=== PATIENT | female | born 1985 | race African-American/Black ===

== ENCOUNTER 2019-04-13 17:00 | Inpatient (IN) | payer MEDICARE, MEDICAID ==
[~2019-04-13] VITALS: Ht 177.8 cm; Wt 152.0 kg
[2019-04-13] MEDS ORDERED: MORPHINE SULFATE 4 MG/ML CPJ (NOT FOR IM USE) IV STA (18:46)
[2019-04-13] MEDS ORDERED: ONDANSETRON HCL 4MG/2ML INJ IV STA (18:46)
[2019-04-13] MEDS ORDERED: SODIUM CHLORIDE 0.9% 1,000 ML IV ONE (18:46)
[2019-04-13] MEDS ORDERED: DIPHENHYDRAMINE 50MG/ML VIAL IV ONE ×2 (19:00→23:15)
[2019-04-13 19:13] LABS: CLARITY URINE CLOUDY (CLEAR); COLOR URINE YELLOW (YELLOW); KETONES URINE NEGATIVE (NEGATIVE); LEUKOCYTE ESTERASE URINE 3+ (NEGATIVE); NITRITE URINE NEGATIVE (NEGATIVE); OCCULT BLOOD URINE 1+ (NEGATIVE); PH URINE >=9.0 (4.5-8.0); PROTEIN URINE NEGATIVE (NEGATIVE); SPECIFIC GRAVITY URINE 1.008 (1.005-1.030); UROBILINOGEN URINE 0.2 E.U./dL (0.2-1.0)
[2019-04-13] MEDS ORDERED: METRONIDAZOLE 500 MG PREMIX 100 ML IV ONE (19:30)
[2019-04-13] MEDS ORDERED: PIPERACILLIN/TAZ 3.375G PREMIX 50 ML IV ONE (19:30)
[2019-04-13 20:20] LABS: *AMPHETAMINES SCREEN URINE NEGATIVE (NEGATIVE); *BARBITURATES SCREEN URINE NEGATIVE (NEGATIVE); *BENZODIAZEPINES SCREEN URINE NEGATIVE (NEGATIVE); *COCAINE SCREEN URINE NEGATIVE (NEGATIVE)
[2019-04-13 20:21] LABS: METHADONE URINE SCREEN NEGATIVE (NEGATIVE); OPIATES URINE SCREEN NEGATIVE (NEGATIVE); PHENCYCLIDINE URINE SCREEN NEGATIVE (NEGATIVE)
[2019-04-13 20:32] LABS: CANNABINOID URINE SCREEN PRESUMTIVE POSITIVE (NEGATIVE)
[2019-04-13 22:11] LABS: BASOPHILS % 0.8 % (0.0-2.0); EOSINOPHILS % 1.4 % (0.0-5.0); HEMATOCRIT. 32.3 % (36.0-48.0); HEMOGLOBIN. 10.3 g/dL (12.0-16.0); LYMPHOCYTES % 16.6 % (20.0-50.0); MEAN CORPUSCULAR HEMOGLOBIN 23.5 pg (28.0-32.0); MEAN CORPUSCULAR VOLUME 73.7 fL (81.0-99.0); MONOCYTES % 7.7 % (2.0-8.0); NEUTROPHILS % 73.5 % (40.0-76.0); PLATELET 436 x1000/uL (130-400); RED BLOOD CELL COUNT 4.38 mill/uL (4.2-5.4)
[2019-04-13 22:18] LABS: CHLORIDE 102 mEq/L (98-107); HCG SCREEN NEGATIVE
[2019-04-13 22:21] LABS: ETHANOL BLOOD < 10 mg/dL
[2019-04-13] MEDS ORDERED: MORPHINE SULFATE 10 MG/ML CPJ IV ONE (23:15)
[2019-04-13] MEDS ORDERED: ONDANSETRON HCL 4MG/2ML INJ IV ONE (23:15)
[2019-04-14] MEDS ORDERED: VANCOMYCIN 1 G PREMIX 200 ML IV SCH (01:15)
[2019-04-14] MEDS ORDERED: DIPHENHYDRAMINE 50MG/ML VIAL IV ONE (04:00)
[2019-04-14] MEDS ORDERED: MORPHINE SULFATE 4 MG/ML CPJ (NOT FOR IM USE) IV ONE (04:00)
[2019-04-14 05:35] VITALS: BP 132/67
[2019-04-14 08:00] VITALS: BP 146/87
[2019-04-14] MEDS: HYDROMORPHONE HCL/PF 2MG/ML CPJ IV PRN ×4 (09:16→23:03)
[2019-04-14 09:30] VITALS: BP 146/87
[2019-04-14] MEDS ORDERED: PIPERACILLIN/TAZ 3.375G PREMIX 50 ML IV SCH (09:30)
[2019-04-14] MEDS ORDERED: ONDANSETRON HCL 4MG/2ML INJ IV PRN (09:30)
[2019-04-14] MEDS ORDERED: CLONIDINE 0.1MG TABLET PO PRN (09:30)
[2019-04-14] MEDS ORDERED: ACETAMINOPHEN 325MG TABLET PO PRN (09:30)
[2019-04-14] MEDS: DIPHENHYDRAMINE 50MG/ML VIAL IV PRN ×3 (10:35→23:36)
[2019-04-14] MEDS: ENOXAPARIN 40MG/0.4ML SYR SUBCUT SCH ×2 (10:44→20:29)
[2019-04-14] MEDS ORDERED: PIPERACILLIN/TAZOBACTAM 3.375 G in DEXT 5% WATER 100 ML IV SCH (11:30)
[2019-04-14 12:00] VITALS: BP 101/56
[2019-04-14] MEDS ORDERED: VANCOMYCIN 1250MG in DEXTROSE 5% WATER 250ML IV SCH (12:00)
[2019-04-14] MEDS: SODIUM CHLORIDE 0.9% 1,000 ML IV SCH (15:35)
[2019-04-14 16:00] VITALS: BP 132/73
[2019-04-14] MEDS: PIPERACILLIN/TAZOBACTAM 3.375 G in DEXT 5% WATER 100 ML IV SCH (16:05)
[2019-04-14] MEDS: VANCOMYCIN 1,250 MG in DEXT 5% WATER 250 ML IV SCH (17:27)
[2019-04-14 20:00] VITALS: BP 151/64
[2019-04-15] VITALS: BP 135/55
[2019-04-15] MEDS: PIPERACILLIN/TAZOBACTAM 3.375 G in DEXT 5% WATER 100 ML IV SCH ×4 (01:12→23:28)
[2019-04-15] MEDS: VANCOMYCIN 1,250 MG in DEXT 5% WATER 250 ML IV SCH ×3 (02:19→17:04)
[2019-04-15] MEDS: HYDROMORPHONE HCL/PF 2MG/ML CPJ IV PRN ×5 (03:24→20:54)
[2019-04-15 04:00] VITALS: BP 116/63
[2019-04-15] MEDS: DIPHENHYDRAMINE 50MG/ML VIAL IV PRN ×4 (05:34→23:28)
[2019-04-15] MEDS: ENOXAPARIN 40MG/0.4ML SYR SUBCUT SCH ×2 (09:00→20:53)
[2019-04-15] MEDS: SODIUM CHLORIDE 0.9% 1,000 ML IV SCH (09:09)
[2019-04-15 14:20] LABS: BASOPHILS % 1.1 % (0.0-2.0); EOSINOPHILS % 5.8 % (0.0-5.0); HEMATOCRIT. 30.8 % (36.0-48.0); HEMOGLOBIN. 9.6 g/dL (12.0-16.0); LYMPHOCYTES % 18.1 % (20.0-50.0); MEAN CORPUSCULAR HEMOGLOBIN 22.8 pg (28.0-32.0); MEAN CORPUSCULAR VOLUME 73.3 fL (81.0-99.0); MEAN PLATELET VOLUME 7.2 fl (7.4-10.4); MONOCYTES % 9.6 % (2.0-8.0); NEUTROPHILS % 65.4 % (40.0-76.0); PLATELET 384 x1000/uL (130-400); RED BLOOD CELL COUNT 4.19 mill/uL (4.2-5.4); RED CELL DISTRIBUTION WIDTH 19.7 % (11.6-14.6)
[2019-04-15 14:37] LABS: CHLORIDE 102 mEq/L (98-107)
[2019-04-15 20:00] VITALS: BP 130/55
[2019-04-16] VITALS (7 sets, daily range): BP systolic 100–132; BP diastolic 63–84
[2019-04-16] MEDS: HYDROMORPHONE HCL/PF 2MG/ML CPJ IV PRN ×6 (01:02→21:47)
[2019-04-16] MEDS: VANCOMYCIN 1,250 MG in DEXT 5% WATER 250 ML IV SCH ×3 (01:02→17:18)
[2019-04-16] MEDS: DIPHENHYDRAMINE 50MG/ML VIAL IV PRN ×4 (05:15→23:17)
[2019-04-16] MEDS: ENOXAPARIN 40MG/0.4ML SYR SUBCUT SCH ×2 (09:00→21:00)
[2019-04-16] MEDS: PIPERACILLIN/TAZOBACTAM 3.375 G in DEXT 5% WATER 100 ML IV SCH ×3 (09:17→23:17)
[2019-04-16 15:49] LABS: HEMATOCRIT 29.9 % (36.0-48.0); HEMOGLOBIN 9.2 g/dL (12.0-16.0)
[2019-04-17] VITALS: BP 134/80
[2019-04-17] MEDS: VANCOMYCIN 1,250 MG in DEXT 5% WATER 250 ML IV SCH ×3 (01:44→17:22)
[2019-04-17] MEDS: HYDROMORPHONE HCL/PF 2MG/ML CPJ IV PRN ×4 (01:51→20:19)
[2019-04-17 04:00] VITALS: BP 136/72
[2019-04-17] MEDS: DIPHENHYDRAMINE 50MG/ML VIAL IV PRN ×4 (05:25→23:18)
[2019-04-17 08:00] VITALS: BP 130/77
[2019-04-17] MEDS: ENOXAPARIN 40MG/0.4ML SYR SUBCUT SCH ×2 (09:00→20:26)
[2019-04-17] MEDS: PIPERACILLIN/TAZOBACTAM 3.375 G in DEXT 5% WATER 100 ML IV SCH ×3 (09:12→23:19)
[2019-04-17] MEDS: SODIUM CHLORIDE 0.9% 1,000 ML IV SCH (09:12)
[2019-04-17] MEDS ORDERED: HYDROCODONE/ACETAMINOPHEN 5/325MG TABLET PO PRN ×2 (10:30)
[2019-04-17 12:00] VITALS: BP 128/75
[2019-04-17] MEDS ORDERED: HYDROMORPHONE HCL/PF 2MG/ML CPJ IV PRN (15:40)
[2019-04-17 16:00] VITALS: BP 132/78
[2019-04-17 20:00] VITALS: BP 118/69
[2019-04-18] VITALS: BP 110/71
[2019-04-18] MEDS: HYDROMORPHONE HCL/PF 2MG/ML CPJ IV PRN ×6 (00:39→20:40)
[2019-04-18] MEDS: VANCOMYCIN 1,250 MG in DEXT 5% WATER 250 ML IV SCH ×3 (00:39→16:25)
[2019-04-18 04:00] VITALS: BP 133/68
[2019-04-18] MEDS: DIPHENHYDRAMINE 50MG/ML VIAL IV PRN ×4 (05:01→22:43)
[2019-04-18 08:00] VITALS: BP 110/67
[2019-04-18] MEDS: ENOXAPARIN 40MG/0.4ML SYR SUBCUT SCH ×2 (08:53→20:53)
[2019-04-18] MEDS: PIPERACILLIN/TAZOBACTAM 3.375 G in DEXT 5% WATER 100 ML IV SCH ×3 (08:54→22:43)
[2019-04-18 20:00] VITALS: BP 121/74
[2019-04-19] VITALS (9 sets, daily range): BP systolic 19–141; BP diastolic 52–124
[2019-04-19] MEDS: VANCOMYCIN 1,250 MG in DEXT 5% WATER 250 ML IV SCH ×3 (00:38→18:08)
[2019-04-19] MEDS: HYDROMORPHONE HCL/PF 2MG/ML CPJ IV PRN ×6 (00:41→21:05)
[2019-04-19] MEDS: DIPHENHYDRAMINE 50MG/ML VIAL IV PRN ×3 (04:55→16:53)
[2019-04-19 07:08] LABS: CHLORIDE 105 mEq/L (98-107)
[2019-04-19] MEDS: PIPERACILLIN/TAZOBACTAM 3.375 G in DEXT 5% WATER 100 ML IV SCH ×2 (07:54→16:53)
[2019-04-19] MEDS: ENOXAPARIN 40MG/0.4ML SYR SUBCUT SCH ×2 (09:00→21:00)
[2019-04-19] MEDS: SODIUM CHLORIDE 0.9% 1,000 ML IV SCH ×2 (10:20→11:00)
[2019-04-19] MEDS ORDERED: HYDROMORPHONE HCL/PF 2MG/ML CPJ IV NR (17:42)
== END 2019-04-19 22:18 | disposition short-term general hospital (02) | DRG 603 ==
LOC: ER 17:00 → 6EST 04-14 01:05 → EDBEDREQSVC 04-14 01:10 → EDBEDREQ 04-14 01:10 → EDBEDREQTM 04-14 01:10 → EDBEDREQDT 04-14 01:10 → ENRESERV 04-14 04:12 → 6EST 04-14 06:28
PROVIDERS: ADMIT Internal Medicine; ATTEND Internal Medicine
PROC: 02HV33Z Insertion of Infusion Device into Superior Vena Cava, Percutaneous Approach (ICD-10-PCS; principal; 2019-04-14)
PROC: B548ZZA Ultrasonography of Superior Vena Cava, Guidance (ICD-10-PCS; 2019-04-14)
DX: L03.311 Cellulitis of abdominal wall (principal); K50.911 Crohn's disease, unspecified, with rectal bleeding; N39.0 Urinary tract infection, site not specified; N82.3 Fistula of vagina to large intestine; Z68.42 Body mass index [BMI] 45.0-49.9, adult; D64.9 Anemia, unspecified; E66.01 Morbid (severe) obesity due to excess calories; Z88.8 Allergy status to other drugs, medicaments and biological substances; Z93.6 Other artificial openings of urinary tract status
CPT/HCPCS: 36415; 71045; 74176; 76937; 80048; 80202; 80305; 80320; 81003; 83605; 84145; 84484; 84703; 85014; 85018; 86850; 86900; 93970; 96365; 96366; 96367; 96368; 96375; 96376; 99285; C1725; C1893; J1170; J1200; J1650; J2270; J2405; J2543; J3370; J3490; J7030; J7060; G0480

== ENCOUNTER 2020-01-16 13:50 | Inpatient (IN) | payer MEDICARE, MEDICAID ==
[~2020-01-16] VITALS: Ht 167.6 cm; Wt 184.2 kg
[2020-01-16] MEDS ORDERED: ONDANSETRON HCL 4MG/2ML INJ IV ONE (14:45)
[2020-01-16] MEDS ORDERED: MORPHINE SULFATE 4 MG/ML CPJ (NOT FOR IM USE) IV ONE ×4 (14:45→18:45)
[2020-01-16] MEDS: VANCOMYCIN 1 G PREMIX 200 ML IV ONE (14:45)
[2020-01-16] MEDS ORDERED: SODIUM CHLORIDE 0.9% 1,000 ML IV ONE (14:45)
[2020-01-16] MEDS ORDERED: PIPERACILLIN/TAZ 3.375G PREMIX 50 ML IV ONE (14:45)
[2020-01-16 16:08] LABS: BASOPHILS % 0.3 % (0.0-2.0); EOSINOPHILS % 2.6 % (0.0-5.0); HEMATOCRIT. 37.8 % (36.0-48.0); HEMOGLOBIN. 12.1 g/dL (12.0-16.0); LYMPHOCYTES % 34.6 % (20.0-50.0); MEAN CORPUSCULAR HEMOGLOBIN 27.9 pg (28.0-32.0); MEAN CORPUSCULAR VOLUME 86.8 fL (81.0-99.0); MEAN PLATELET VOLUME 7.9 fl (7.4-10.4); MONOCYTES % 10.7 % (2.0-8.0); NEUTROPHILS % 51.8 % (40.0-76.0); PLATELET 290 x1000/uL (130-400); RED BLOOD CELL COUNT 4.35 mill/uL (4.2-5.4); RED CELL DISTRIBUTION WIDTH 20.2 % (11.6-14.6)
[2020-01-16 16:13] LABS: CHLORIDE 109 mEq/L (98-107)
[2020-01-16] MEDS ORDERED: DIPHENHYDRAMINE 50MG/ML VIAL IV ONE (17:00)
[2020-01-16 17:14] LABS: HCG SCREEN NEGATIVE
[2020-01-16 18:26] LABS: CLARITY URINE TURBID (CLEAR); COLOR URINE RED (YELLOW); KETONES URINE NEGATIVE (NEGATIVE); LEUKOCYTE ESTERASE URINE 2+ (NEGATIVE); NITRITE URINE NEGATIVE (NEGATIVE); OCCULT BLOOD URINE 3+ (NEGATIVE); PROTEIN URINE 2+ (NEGATIVE); UROBILINOGEN URINE 0.2 E.U./dL (0.2-1.0)
[2020-01-16] MEDS ORDERED: MORPHINE SULFATE 10 MG/ML CPJ IV ONE (19:45)
[2020-01-16] MEDS: VANCOMYCIN 1 G PREMIX 200 ML IV NR ×2 (21:59→22:00)
[2020-01-17] MEDS ORDERED: MORPHINE SULFATE 2 MG/ML CPJ (NOT FOR IM USE) IV PRN (00:11)
[2020-01-17] MEDS ORDERED: DIPHENHYDRAMINE 50MG/ML VIAL IV PRN (01:00)
[2020-01-17] MEDS: MORPHINE SULFATE 4 MG/ML CPJ (NOT FOR IM USE) IV PRN ×2 (04:56→10:04)
[2020-01-17] MEDS ORDERED: ACETAMINOPHEN 325MG TABLET PO PRN (08:00)
[2020-01-17] MEDS ORDERED: DIPHENHYDRAMINE 25MG CAPSULE PO PRN (08:00)
[2020-01-17] MEDS ORDERED: ONDANSETRON HCL 4MG/2ML INJ IV PRN (08:00)
[2020-01-17] MEDS ORDERED: HYDROCODONE/ACETAMINOPHEN 10/325MG TABLET PO PRN (08:00)
[2020-01-17 10:00] VITALS: BP 154/89
[2020-01-17] MEDS ORDERED: VANCOMYCIN 1250MG in DEXTROSE 5% WATER 250ML IV SCH (10:00)
[2020-01-17] MEDS ORDERED: B50 GT (10:36)
[2020-01-17] MEDS ORDERED: OXYC-105 MT (10:36)
[2020-01-17] MEDS: PIPERACILLIN/TAZOBACTAM 3.375 G in DEXT 5% WATER 100 ML IV SCH ×3 (11:43→20:14)
[2020-01-17 12:00] VITALS: BP 152/89
[2020-01-17] MEDS: HYDROMORPHONE HCL/PF 2MG/ML CPJ IV PRN ×4 (12:57→22:55)
[2020-01-17] MEDS ORDERED: DIPHENHYDRAMINE 50MG CAPSULE PO PRN (14:15)
[2020-01-17 14:56] LABS: *AMPHETAMINES SCREEN URINE NEGATIVE (NEGATIVE); *BARBITURATES SCREEN URINE NEGATIVE (NEGATIVE)
[2020-01-17 14:57] LABS: *BENZODIAZEPINES SCREEN URINE NEGATIVE (NEGATIVE); *COCAINE SCREEN URINE NEGATIVE (NEGATIVE)
[2020-01-17 14:58] LABS: METHADONE URINE SCREEN NEGATIVE (NEGATIVE); PHENCYCLIDINE URINE SCREEN NEGATIVE (NEGATIVE)
[2020-01-17 15:08] LABS: CANNABINOID URINE SCREEN PRESUMTIVE POSITIVE (NEGATIVE); OPIATES URINE SCREEN PRESUMTIVE POSITIVE (NEGATIVE)
[2020-01-17 16:00] VITALS: BP 126/78
[2020-01-17] MEDS: MESALAMINE 400 MG CAPSULE.DR PO SCH (16:19)
[2020-01-17] MEDS: DIPHENHYDRAMINE 50MG/ML VIAL IV PRN (16:22)
[2020-01-17 20:00] VITALS: BP 119/87
[2020-01-17 21:02] VITALS: BP 119/87
[2020-01-18] VITALS: BP 127/74
[2020-01-18] MEDS: VANCOMYCIN 1500MG in DEXTROSE 5% WATER 250ML IV SCH ×3 (00:04→12:40)
[2020-01-18] MEDS: HYDROMORPHONE HCL/PF 2MG/ML CPJ IV PRN ×7 (02:11→22:20)
[2020-01-18 04:00] VITALS: BP 149/94
[2020-01-18 04:37] VITALS: BP 149/94
[2020-01-18] MEDS: PIPERACILLIN/TAZOBACTAM 3.375 G in DEXT 5% WATER 100 ML IV SCH ×4 (05:00→19:55)
[2020-01-18] MEDS: DIPHENHYDRAMINE 50MG/ML VIAL IV PRN ×4 (05:08→22:20)
[2020-01-18 06:24] LABS: BASOPHILS % 0.9 % (0.0-2.0); EOSINOPHILS % 2.9 % (0.0-5.0); HEMATOCRIT. 34.7 % (36.0-48.0); HEMOGLOBIN. 11.4 g/dL (12.0-16.0); LYMPHOCYTES % 28.1 % (20.0-50.0); MEAN CORPUSCULAR HEMOGLOBIN 28.2 pg (28.0-32.0); MEAN CORPUSCULAR VOLUME 85.6 fL (81.0-99.0); MEAN PLATELET VOLUME 7.5 fl (7.4-10.4); NEUTROPHILS % 58.1 % (40.0-76.0); PLATELET 281 x1000/uL (130-400); RED BLOOD CELL COUNT 4.06 mill/uL (4.2-5.4); RED CELL DISTRIBUTION WIDTH 19.4 % (11.6-14.6)
[2020-01-18 06:28] LABS: CHLORIDE 104 mEq/L (98-107)
[2020-01-18 08:00] VITALS: BP 123/72
[2020-01-18] MEDS: MESALAMINE 400 MG CAPSULE.DR PO SCH ×3 (08:19→18:34)
[2020-01-18] MEDS ORDERED: POTASSIUM CHLORIDE 20MEQ TABLET SR PO NR (08:39)
[2020-01-18 12:00] VITALS: BP 138/75
[2020-01-18 16:00] VITALS: BP 155/71
[2020-01-18] MEDS ORDERED: HYDROMORPHONE HCL/PF 2MG/ML CPJ IV NR (17:00)
[2020-01-18] MEDS ORDERED: OXYCODONE HCL/ACETAMINOPHEN 5/325MG TABLET PO PRN (17:00)
[2020-01-19] VITALS: BP 126/71
[2020-01-19] MEDS: PIPERACILLIN/TAZOBACTAM 3.375 G in DEXT 5% WATER 100 ML IV SCH ×2 (01:49→08:09)
[2020-01-19] MEDS: HYDROMORPHONE HCL/PF 2MG/ML CPJ IV PRN ×3 (01:50→09:47)
[2020-01-19] MEDS: DIPHENHYDRAMINE 50MG/ML VIAL IV PRN ×2 (03:47→08:09)
[2020-01-19 04:00] VITALS: BP 135/84
[2020-01-19 08:00] VITALS: BP 135/66
[2020-01-19] MEDS: MESALAMINE 400 MG CAPSULE.DR PO SCH ×3 (08:09→17:00)
[2020-01-19 12:00] VITALS: BP 149/99
[2020-01-19] MEDS: VANCOMYCIN 1500MG in DEXTROSE 5% WATER 250ML IV SCH (12:18)
[2020-01-19] MEDS: OXYCODONE HCL/ACETAMINOPHEN 5/325MG TABLET PO PRN ×2 (13:41→21:58)
[2020-01-19] MEDS ORDERED: OXYC-105 MT (18:50)
[2020-01-19] MEDS ORDERED: SULF1TAB44 PO (18:50)
[2020-01-19] MEDS ORDERED: AMOX1TAB16 PO (18:50)
[2020-01-19] MEDS ORDERED: AMLO5TAB88 MT (18:52)
[2020-01-19 21:00] VITALS: BP 138/82
[2020-01-19] MEDS: SULFAMETHOXAZOLE/TRIMETHOPRIM 800/160MG TABLET PO SCH ×2 (21:00→21:57)
[2020-01-19] MEDS: AMOXICILLIN/POTASSIUM CLAVULANATE 875/125MG TAB PO SCH ×2 (21:57→22:03)
[2020-01-19] MEDS: AMLODIPINE 5MG TABLET PO SCH (21:57)
[2020-01-19] MEDS: DIPHENHYDRAMINE 50MG CAPSULE PO PRN (22:09)
[2020-01-20] VITALS (7 sets, daily range): BP systolic 118–152; BP diastolic 69–86
[2020-01-20] MEDS: MORPHINE SULFATE 2 MG/ML CPJ (NOT FOR IM USE) IV PRN ×4 (01:51→09:55)
[2020-01-20 07:09] LABS: BASOPHILS % 0.9 % (0.0-2.0); EOSINOPHILS % 3.1 % (0.0-5.0); HEMATOCRIT. 36.2 % (36.0-48.0); HEMOGLOBIN. 12.2 g/dL (12.0-16.0); LYMPHOCYTES % 25.9 % (20.0-50.0); MEAN CORPUSCULAR HEMOGLOBIN 28.6 pg (28.0-32.0); MEAN CORPUSCULAR VOLUME 84.9 fL (81.0-99.0); MEAN PLATELET VOLUME 7.6 fl (7.4-10.4); MONOCYTES % 9.6 % (2.0-8.0); NEUTROPHILS % 60.5 % (40.0-76.0); PLATELET 322 x1000/uL (130-400); RED BLOOD CELL COUNT 4.27 mill/uL (4.2-5.4); RED CELL DISTRIBUTION WIDTH 19.4 % (11.6-14.6)
[2020-01-20 07:21] LABS: CHLORIDE 106 mEq/L (98-107)
[2020-01-20] MEDS: SULFAMETHOXAZOLE/TRIMETHOPRIM 800/160MG TABLET PO SCH (09:00)
[2020-01-20] MEDS: MESALAMINE 400 MG CAPSULE.DR PO SCH ×3 (09:54→18:37)
[2020-01-20] MEDS: AMLODIPINE 5MG TABLET PO SCH (09:54)
[2020-01-20] MEDS ORDERED: NALOXONE HCL 0.4 MG/ML 1ML VIAL IV PRN (12:15)
[2020-01-20] MEDS: HYDROMORPHONE HCL/PF 2MG/ML CPJ IV PRN ×2 (12:33→18:44)
[2020-01-20] MEDS: GABAPENTIN 400MG CAPSULE PO SCH ×2 (12:48→21:04)
[2020-01-20] MEDS: MEROPENEM 1,000 MG in SODIUM CHLORIDE 0.9% 100 ML IV SCH ×2 (13:03→21:04)
[2020-01-20] MEDS: OXYCODONE HCL 5MG TABLET PO PRN ×2 (13:59→21:04)
[2020-01-20] MEDS: TIZANIDINE HCL 2MG TABLET PO PRN (14:00)
[2020-01-20] MEDS: DIPHENHYDRAMINE 50MG CAPSULE PO PRN ×2 (14:04→21:28)
[2020-01-21 00:10] VITALS: BP 130/79
[2020-01-21] MEDS: HYDROMORPHONE HCL/PF 2MG/ML CPJ IV PRN ×4 (02:54→23:27)
[2020-01-21] MEDS: LORAZEPAM 2MG/ML CPJ IV PRN ×2 (02:54→23:00)
[2020-01-21 04:00] VITALS: BP 115/66
[2020-01-21] MEDS: MEROPENEM 1,000 MG in SODIUM CHLORIDE 0.9% 100 ML IV SCH ×3 (06:21→21:14)
[2020-01-21] MEDS: GABAPENTIN 400MG CAPSULE PO SCH ×3 (06:21→21:15)
[2020-01-21] MEDS: OXYCODONE HCL 5MG TABLET PO PRN ×3 (06:21→18:51)
[2020-01-21] MEDS: TIZANIDINE HCL 2MG TABLET PO PRN ×3 (06:22→23:25)
[2020-01-21 08:34] VITALS: BP 145/80
[2020-01-21] MEDS: AMLODIPINE 5MG TABLET PO SCH ×2 (08:36→21:15)
[2020-01-21] MEDS: MESALAMINE 400 MG CAPSULE.DR PO SCH ×3 (08:36→17:19)
[2020-01-21] MEDS ORDERED: HYDROMORPHONE HCL/PF 2MG/ML CPJ IV SCH (11:15)
[2020-01-21 12:03] VITALS: BP 134/63
[2020-01-21] MEDS: DIPHENHYDRAMINE 50MG CAPSULE PO PRN ×2 (12:23→18:51)
[2020-01-21 16:00] VITALS: BP 120/82
[2020-01-21 20:00] VITALS: BP 140/73
[2020-01-22] VITALS: BP 130/74
[2020-01-22 04:00] VITALS: BP 135/78
[2020-01-22] MEDS: GABAPENTIN 400MG CAPSULE PO SCH ×3 (06:29→21:18)
[2020-01-22] MEDS: MEROPENEM 1,000 MG in SODIUM CHLORIDE 0.9% 100 ML IV SCH ×3 (06:29→21:18)
[2020-01-22] MEDS: DIPHENHYDRAMINE 50MG CAPSULE PO PRN ×2 (06:47→18:48)
[2020-01-22] MEDS: HYDROMORPHONE HCL/PF 2MG/ML CPJ IV PRN (06:47)
[2020-01-22 08:00] VITALS: BP 133/72
[2020-01-22] MEDS: OXYCODONE HCL 5MG TABLET PO PRN ×3 (08:18→20:38)
[2020-01-22] MEDS: LORAZEPAM 2MG/ML CPJ IV PRN ×2 (08:19→17:41)
[2020-01-22] MEDS: MESALAMINE 400 MG CAPSULE.DR PO SCH ×3 (09:23→17:40)
[2020-01-22] MEDS: AMLODIPINE 5MG TABLET PO SCH ×2 (09:23→20:38)
[2020-01-22] MEDS: TIZANIDINE HCL 2MG TABLET PO PRN ×2 (09:24→21:18)
[2020-01-22 12:00] VITALS: BP 130/74
[2020-01-22] MEDS ORDERED: HYDROMORPHONE HCL/PF 2MG/ML CPJ IV PRN ×2 (12:15→18:15)
[2020-01-22] MEDS ORDERED: DIPHENHYDRAMINE 50MG/ML VIAL IV PRN (12:30)
[2020-01-22 16:00] VITALS: BP 137/69
[2020-01-22 20:00] VITALS: BP 151/95
[2020-01-22] MEDS: CHLORHEXIDINE GLUCONATE 4% EXTERNAL USE TOP SCH (20:39)
[2020-01-23] VITALS: BP 124/81
[2020-01-23] MEDS: LORAZEPAM 2MG/ML CPJ IV PRN ×5 (00:38→20:56)
[2020-01-23] MEDS: HYDROMORPHONE HCL/PF 2MG/ML CPJ IV PRN ×4 (00:51→18:51)
[2020-01-23] MEDS: DIPHENHYDRAMINE 50MG CAPSULE PO PRN ×4 (00:51→23:51)
[2020-01-23 04:00] VITALS: BP 135/93
[2020-01-23] MEDS: GABAPENTIN 400MG CAPSULE PO SCH ×3 (06:42→20:58)
[2020-01-23] MEDS: MEROPENEM 1,000 MG in SODIUM CHLORIDE 0.9% 100 ML IV SCH ×3 (06:43→20:58)
[2020-01-23 08:00] VITALS: BP 143/87
[2020-01-23] MEDS: CHLORHEXIDINE GLUCONATE 4% EXTERNAL USE TOP SCH ×4 (09:00→21:00)
[2020-01-23] MEDS: AMLODIPINE 5MG TABLET PO SCH ×3 (09:00→20:55)
[2020-01-23] MEDS: MESALAMINE 400 MG CAPSULE.DR PO SCH ×4 (09:00→17:40)
[2020-01-23 12:00] VITALS: BP 114/96
[2020-01-23] MEDS: TIZANIDINE HCL 2MG TABLET PO PRN ×2 (13:28→23:51)
[2020-01-23] MEDS: OXYCODONE HCL 5MG TABLET PO PRN ×2 (15:58→20:56)
[2020-01-23 16:00] VITALS: BP 100/46
[2020-01-23 20:00] VITALS: BP 140/99
[2020-01-24] VITALS: BP 157/83
[2020-01-24] MEDS: HYDROMORPHONE HCL/PF 2MG/ML CPJ IV PRN ×2 (00:51→06:53)
[2020-01-24] MEDS: LORAZEPAM 2MG/ML CPJ IV PRN ×3 (01:59→10:30)
[2020-01-24] MEDS: OXYCODONE HCL 5MG TABLET PO PRN ×3 (01:59→10:29)
[2020-01-24 04:00] VITALS: BP 131/20
[2020-01-24] MEDS: MEROPENEM 1,000 MG in SODIUM CHLORIDE 0.9% 100 ML IV SCH ×2 (05:58→14:00)
[2020-01-24] MEDS: GABAPENTIN 400MG CAPSULE PO SCH ×2 (05:59→14:00)
[2020-01-24 08:00] VITALS: BP 141/100
[2020-01-24] MEDS: AMLODIPINE 5MG TABLET PO SCH (08:33)
[2020-01-24] MEDS: CHLORHEXIDINE GLUCONATE 4% EXTERNAL USE TOP SCH ×2 (08:33→13:00)
[2020-01-24] MEDS: MESALAMINE 400 MG CAPSULE.DR PO SCH ×2 (08:33→13:00)
[2020-01-24 11:17] VITALS: BP 141/100
== END 2020-01-24 15:50 | disposition home or self-care (01) | DRG 758 ==
LOC: ER 14:07 → MICUSO 20:48 → 6WST 01-17 07:18
PROVIDERS: ADMIT Internal Medicine; ATTEND Internal Medicine
DX: N76.5 Ulceration of vagina (principal); K50.90 Crohn's disease, unspecified, without complications; N39.0 Urinary tract infection, site not specified; E44.1 Mild protein-calorie malnutrition; Z68.42 Body mass index [BMI] 45.0-49.9, adult; D72.819 Decreased white blood cell count, unspecified; E87.8 Other disorders of electrolyte and fluid balance, not elsewhere classified; L73.2 Hidradenitis suppurativa; E66.9 Obesity, unspecified; E66.01 Morbid (severe) obesity due to excess calories; F12.90 Cannabis use, unspecified, uncomplicated; J45.909 Unspecified asthma, uncomplicated; Z88.6 Allergy status to analgesic agent; Z93.3 Colostomy status; Z79.899 Other long term (current) drug therapy
CPT/HCPCS: 36415; 74018; 74176; 76856; 80048; 80053; 80305; 81003; 83605; 84703; 85025; 86850; 86900; 87070; 87077; 87186; 93005; 99285; J1170; J1200; J2060; J2185; J2270; J2405; J2543; J3370; J7030; J7050; J7060; Q0163